=== PATIENT | male | born 1985 | race African-American/Black ===

== ENCOUNTER 2019-01-03 14:16 | Emergency (ER) | payer MEDICARE, MEDICAID ==
[~2019-01-03] VITALS: Ht 180.3 cm; Wt 100.0 kg
[~2019-01-03 14:16] MED LIST: MAGOX PO; OLAN10TA3 PO; RISP3 PO
[2019-01-03 14:37] VITALS: BP 134/84
== END 2019-01-03 15:45 | disposition left against medical advice (07) ==
LOC: EMS 14:18
DX: R22.0 Localized swelling, mass and lump, head (principal); Z53.21 Procedure and treatment not carried out due to patient leaving prior to being seen by health care provider

== ENCOUNTER 2019-07-03 09:36 | Inpatient (IN) | payer MEDICARE, MEDICAID ==
[~2019-07-03] VITALS: Ht 180.3 cm; Wt 107.4 kg
[2019-07-03 14:37] VITALS: BP 162/70
[2019-07-03] MEDS ORDERED: HALOPERIDOL 5 MG TABLET PO PRN (14:45)
[2019-07-03] MEDS ORDERED: LORazepam 2 MG TABLET PO PRN (14:45)
[2019-07-03] MEDS ORDERED: INFLUENZA VIRUS VACCINE QVS 2019-20 (3YR+)/PF 60 MCG/0.5 ML SYRINGE IM ONE (15:00)
[2019-07-03] MEDS ORDERED: MAGNESIUM HYDROXIDE SUSPENSION 30 ML UDCUP PO PRN ×2 (16:00→23:30)
[2019-07-03] MEDS ORDERED: LOPERAMIDE HCL 2 MG CAPSULE PO PRN ×2 (16:00→23:30)
[2019-07-03] MEDS ORDERED: IBUPROFEN 600 MG TABLET PO PRN ×2 (16:00→23:30)
[2019-07-03] MEDS ORDERED: PETROLATUM,WHITE 28 GM JELLY TP PRN ×2 (16:00→23:30)
[2019-07-03] MEDS ORDERED: BACITRACIN 28.4 GM OINTMENT TP PRN ×2 (16:00→23:30)
[2019-07-03] MEDS ORDERED: DOCUSATE SODIUM 100 MG CAPSULE PO PRN ×2 (16:00→23:30)
[2019-07-03] MEDS ORDERED: ALBUTEROL SULFATE HFA 90 MCG/PUFF 8 GM INHALER IH PRN ×2 (16:00→23:30)
[2019-07-03] MEDS ORDERED: CloNIDine HCL 0.1 MG TABLET PO PRN ×2 (16:00→23:30)
[2019-07-03] MEDS ORDERED: BENZOCAINE/MENTHOL LOZENGE MM PRN ×2 (16:00→23:30)
[2019-07-03] MEDS ORDERED: ONDANSETRON HCL 4 MG TABLET PO PRN ×2 (16:00→23:30)
[2019-07-03] MEDS ORDERED: MAG HYDROX/AL HYDROX/SIMETH ES 30 ML SUSPENSION UDCUP PO PRN ×2 (16:00→23:30)
[2019-07-03] MEDS ORDERED: OMEPRAZOLE 20 MG CAPSULE PO PRN ×2 (16:00→23:30)
[2019-07-03] MEDS ORDERED: ACETAMINOPHEN 325 MG TABLET PO PRN ×2 (16:00→23:30)
[2019-07-04] MEDS: ZOLPIDEM TARTRATE 10 MG TABLET PO PRN (00:02)
[2019-07-04 00:13] VITALS: BP 118/70
[2019-07-04] MEDS: DIVALPROEX SODIUM 500 MG DR TABLET PO SCH ×2 (08:10→16:29)
[2019-07-04] MEDS: RisperiDONE 3 MG TABLET PO SCH ×2 (08:10→16:29)
[2019-07-04] MEDS: BENZTROPINE MESYLATE 1 MG TABLET PO SCH (08:10)
[2019-07-04 08:30] VITALS: BP 135/70
[2019-07-04 16:11] VITALS: BP 137/90
[2019-07-05 01:05] VITALS: BP 112/80
[2019-07-05] MEDS: ZOLPIDEM TARTRATE 10 MG TABLET PO PRN ×2 (01:17→20:44)
[2019-07-05] MEDS: RisperiDONE 3 MG TABLET PO SCH ×2 (08:21→16:21)
[2019-07-05] MEDS: BENZTROPINE MESYLATE 1 MG TABLET PO SCH (08:21)
[2019-07-05] MEDS: DIVALPROEX SODIUM 500 MG DR TABLET PO SCH ×2 (08:21→16:21)
[2019-07-05 08:38] VITALS: BP 124/75
[2019-07-05 09:27] LABS: BASOPHILS % (AUTO) 1.2 % (0.0-2.0); EOSINOPHILS % (AUTO) 3.7 % (1.0-6.0); HEMATOCRIT 43.8 % (41-53); HEMOGLOBIN 14.5 g/dL (13.5-17.5); LYMPHOCYTES # (AUTO) 1.9 K/uL (1.0-4.8); LYMPHOCYTES % (AUTO) 45.3 % (22.0-44.0); MEAN CORPUSCULAR HEMOGLOBIN 28.3 pg (26.0-34.0); MEAN CORPUSCULAR HGB CONC 33.2 G/dL (31.0-37.0); MEAN CORPUSCULAR VOLUME 85 fL (80-100); MONOCYTES # (AUTO) 0.3 K/uL (0.1-1.0); MONOCYTES % (AUTO) 7.4 % (2.0-9.0); NEUTROPHILS # (AUTO) 1.8 K/uL (1.8-7.7); NEUTROPHILS % (AUTO) 42.4 % (40.0-70.0); PLATELET COUNT (AUTO) 235 K/uL (150-450); RED BLOOD CELL COUNT(AUTO) 5.14 MIL/uL (4.50-5.90); RED CELL DISTRIBUTION WIDTH 12.7 % (11.5-14.5)
[2019-07-05 09:47] LABS: HEMOGLOBIN A1C 4.8 % (4.5-6.2)
[2019-07-05 10:41] LABS: ALANINE AMINOTRANSFERASE 28 U/L (12-78); ALBUMIN 3.8 g/dL (3.4-5.0); ALKALINE PHOSPHATASE 72 U/L (46-116); ANION GAP 12 mmol/L (8-16); ASPARTATE AMINOTRANSFERASE 24 U/L (15-37); BILIRUBIN,TOTAL 0.5 mg/dL (0.1-1.0); CALCIUM, TOTAL 8.6 mg/dL (8.8-10.5); CARBON DIOXIDE 25 mmol/L (22-29); CHLORIDE 104 mmol/L (98-107); CHOLESTEROL 163 mg/dL (131-200); CREATININE 0.76 mg/dL (0.60-1.30); FREE T4 (FREE THYROXINE) 1.34 ng/dL (0.76-1.46); GLOMERULAR FILTR. RATE CALC > 60 mL/min (>60); GLUCOSE,RANDOM 102 mg/dL (70-110); HDL CHOLESTEROL 55 mg/dL (40-60); LDL CHOL (CALC.) 92 mg/dL (0-130); POTASSIUM 4.1 mmol/L (3.5-5.1); SODIUM SERUM 141 mmol/L (136-145); TOTAL PROTEIN, SERUM 7.2 g/dL (6.4-8.2); TRIGLYCERIDES 82 mg/dL (15-150); UREA NITROGEN, BLOOD 13 mg/dL (7-18)
[2019-07-05 17:19] VITALS: BP 138/78
[2019-07-06 00:53] VITALS: BP 126/80
[2019-07-06 08:02] VITALS: BP 135/85
[2019-07-06] MEDS: BENZTROPINE MESYLATE 1 MG TABLET PO SCH (08:03)
[2019-07-06] MEDS: RisperiDONE 3 MG TABLET PO SCH ×2 (08:03→16:29)
[2019-07-06] MEDS: DIVALPROEX SODIUM 500 MG DR TABLET PO SCH ×2 (08:03→16:29)
[2019-07-06 16:14] VITALS: BP 130/82
[2019-07-07] MEDS: ZOLPIDEM TARTRATE 10 MG TABLET PO PRN (00:03)
[2019-07-07 00:04] VITALS: BP 121/68
[2019-07-07 08:02] VITALS: BP 137/87
[2019-07-07] MEDS: DIVALPROEX SODIUM 500 MG DR TABLET PO SCH ×2 (08:23→16:46)
[2019-07-07] MEDS: BENZTROPINE MESYLATE 1 MG TABLET PO SCH (08:23)
[2019-07-07] MEDS: RisperiDONE 3 MG TABLET PO SCH ×2 (08:23→16:46)
[2019-07-07] MEDS ORDERED: DIVA250T4 PO (15:12)
[2019-07-07] MEDS ORDERED: BENZ1TAB10 PO (15:13)
[2019-07-07] MEDS ORDERED: RISP3TAB44 PO (15:13)
[2019-07-07 16:05] VITALS: BP 132/78
== END 2019-07-07 17:30 | disposition home or self-care (01) | DRG 885 ==
LOC: B2X 14:50
PROVIDERS: ADMIT Psychiatry & Neurology Psychiatry; ATTEND Psychiatry & Neurology Psychiatry
DX: F20.0 Paranoid schizophrenia (principal); G47.00 Insomnia, unspecified; E55.9 Vitamin D deficiency, unspecified; I10 Essential (primary) hypertension; K59.00 Constipation, unspecified; F15.90 Other stimulant use, unspecified, uncomplicated; Z88.8 Allergy status to other drugs, medicaments and biological substances; Z91.14 Patient's other noncompliance with medication regimen
CPT/HCPCS: 83036; 84439; 84443; 87081

== ENCOUNTER 2022-01-03 14:47 | Emergency (ER) | payer MEDICARE, MEDICAID ==
[~2022-01-03] VITALS: Ht 180.3 cm; Wt 129.6 kg
[~2022-01-03 14:47] MED LIST changes: +BENZ2TAB76 PO; -MAGOX PO; -OLAN10TA3 PO; -RISP3 PO
[2022-01-03 15:05] VITALS: BP 133/94
== END 2022-01-03 18:19 | disposition home or self-care (01) ==
LOC: EMS 14:47
DX: S62.610A Displaced fracture of proximal phalanx of right index finger, initial encounter for closed fracture (principal); F20.9 Schizophrenia, unspecified; Z91.014 Allergy to mammalian meats; W21.19XA Struck by other bat, racquet or club, initial encounter; Y93.89 Activity, other specified; Y92.89 Other specified places as the place of occurrence of the external cause; Y99.8 Other external cause status
CPT/HCPCS: 99283

== ENCOUNTER 2023-04-17 07:26 | Emergency (ER) | payer MEDICARE, MEDICAID ==
[~2023-04-17] VITALS: Ht 175.3 cm; Wt 109.1 kg
[~2023-04-17 07:26] MED LIST changes: +BENZ2TAB71 PO; -BENZ2TAB76 PO
[2023-04-17 07:50] VITALS: TEMP 98.3
[2023-04-17 08:07] LABS: BASOPHILS % (AUTO) 1.1 % (0.0-2.0); EOSINOPHILS % (AUTO) 1.7 % (1.0-6.0); HEMATOCRIT 43.5 % (41-53); HEMOGLOBIN 14.1 g/dL (13.5-17.5); LYMPHOCYTES % (AUTO) 30.6 % (22.0-44.0); MEAN CORPUSCULAR HEMOGLOBIN 27.9 pg (26.0-34.0); MEAN CORPUSCULAR HGB CONC 32.3 G/dL (31.0-37.0); MEAN CORPUSCULAR VOLUME 86 fL (80-100); MONOCYTES # (AUTO) 0.7 K/uL (0.1-1.0); MONOCYTES % (AUTO) 10.2 % (2.0-9.0); NEUTROPHILS # (AUTO) 3.7 K/uL (1.8-7.7); NEUTROPHILS % (AUTO) 56.4 % (40.0-70.0); PLATELET COUNT (AUTO) 303 K/uL (150-450); RED BLOOD CELL COUNT(AUTO) 5.04 MIL/uL (4.50-5.90); RED CELL DISTRIBUTION WIDTH 14.3 % (11.5-14.5)
[2023-04-17 08:20] LABS: ANION GAP 5 mmol/L (8-16); CALCIUM, TOTAL 8.7 mg/dL (8.8-10.5); CARBON DIOXIDE 30 mmol/L (22-29); CHLORIDE 106 mmol/L (98-107); GLOMERULAR FILTR. RATE CALC > 60 mL/min (>60); GLUCOSE,RANDOM 93 mg/dL (70-110); SODIUM SERUM 141 mmol/L (136-145)
[2023-04-17 08:26] LABS: ALANINE AMINOTRANSFERASE 16 U/L (12-78); ALBUMIN 3.7 g/dL (3.4-5.0); ALKALINE PHOSPHATASE 84 U/L (46-116); ASPARTATE AMINOTRANSFERASE 23 U/L (15-37); BILIRUBIN,TOTAL 0.5 mg/dL (0.1-1.0); TOTAL PROTEIN, SERUM 6.9 g/dL (6.4-8.2)
[2023-04-17] MEDS ORDERED: HALOPERIDOL 5 MG TABLET PO ONE (09:30)
[2023-04-17] MEDS ORDERED: BENZTROPINE MESYLATE 2 MG TABLET PO ONE (09:30)
[2023-04-17] MEDS ORDERED: CEPH-558 PO (09:52)
[2023-04-17] MEDS ORDERED: BENZ2TAB71 PO (09:52)
[2023-04-17] MEDS ORDERED: HALO5TAB23 PO (09:52)
[2023-04-17 09:53] VITALS: BP 153/74; PULSE 71; RESP 18
[2023-04-18] MEDS ORDERED: RISP3TAB63 PO (17:49)
== END 2023-04-17 10:00 | disposition home or self-care (01) ==
LOC: EMS 07:26
DX: F25.9 Schizoaffective disorder, unspecified (principal); L73.9 Follicular disorder, unspecified; Z91.018 Allergy to other foods
CPT/HCPCS: 99283; 80053; 85025; G0480

== ENCOUNTER 2023-04-18 13:36 | Emergency (ER) | payer MEDICARE, MEDICAID ==
[~2023-04-18] VITALS: Ht 180.3 cm; Wt 109.1 kg
[~2023-04-18 13:36] MED LIST changes: +CEPH-558 PO; +HALO5TAB23 PO
[2023-04-18 15:22] VITALS: TEMP 98.6
[2023-04-18] MEDS ORDERED: RisperiDONE 1 MG TABLET PO ONE (15:45)
[2023-04-18] MEDS ORDERED: RISP3TAB63 PO (17:49)
[2023-04-18 17:50] VITALS: BP 139/60; PULSE 60; RESP 16
== END 2023-04-18 18:36 | disposition home or self-care (01) ==
LOC: EMS 13:39
DX: F20.9 Schizophrenia, unspecified (principal); Z91.018 Allergy to other foods
CPT/HCPCS: 99284; Z7502; Z7610

== ENCOUNTER 2023-05-11 08:13 | Emergency (ER) | payer MEDICARE, MEDICAID ==
[~2023-05-11] VITALS: Ht 177.8 cm; Wt 84.1 kg
[~2023-05-11 08:13] MED LIST changes: +RISP3TAB63 PO
[2023-05-11 08:21] VITALS: TEMP 98.2
[2023-05-11] MEDS ORDERED: RisperiDONE 1 MG TABLET PO ONE (09:00)
[2023-05-11] MEDS ORDERED: RISP3TAB63 PO (11:36)
[2023-05-11 11:45] VITALS: BP 140/85; PULSE 75; RESP 12
== END 2023-05-11 11:57 | disposition home or self-care (01) ==
LOC: EMS 08:32
DX: F20.9 Schizophrenia, unspecified (principal); Z91.018 Allergy to other foods
CPT/HCPCS: 99283

== ENCOUNTER 2023-05-18 01:00 | Emergency (ER) | payer MEDICARE, MEDICAID ==
[~2023-05-18] VITALS: Ht 180.3 cm; Wt 90.0 kg
[2023-05-18 02:04] VITALS: TEMP 98.7
[2023-05-18 02:40] LABS: BASOPHILS % (AUTO) 0.8 % (0.0-2.0); EOSINOPHILS % (AUTO) 2.6 % (1.0-6.0); HEMATOCRIT 40.3 % (41-53); HEMOGLOBIN 13.4 g/dL (13.5-17.5); LYMPHOCYTES % (AUTO) 36.5 % (22.0-44.0); MEAN CORPUSCULAR HEMOGLOBIN 29.2 pg (26.0-34.0); MEAN CORPUSCULAR HGB CONC 33.4 G/dL (31.0-37.0); MEAN CORPUSCULAR VOLUME 88 fL (80-100); MONOCYTES # (AUTO) 0.5 K/uL (0.1-1.0); MONOCYTES % (AUTO) 8.3 % (2.0-9.0); NEUTROPHILS # (AUTO) 2.8 K/uL (1.8-7.7); NEUTROPHILS % (AUTO) 51.8 % (40.0-70.0); PLATELET COUNT (AUTO) 326 K/uL (150-450); RED CELL DISTRIBUTION WIDTH 14.4 % (11.5-14.5); WHITE BLOOD COUNT (AUTO) 5.4 K/uL (4.5-11.0)
[2023-05-18] MEDS ORDERED: OLANZapine 5 MG TABLET PO ONE (02:45)
[2023-05-18 02:50] LABS: ANION GAP 9 mmol/L (8-16); CALCIUM, TOTAL 8.3 mg/dL (8.8-10.5); CARBON DIOXIDE 25 mmol/L (22-29); CHLORIDE 104 mmol/L (98-107); CREATININE 0.73 mg/dL (0.60-1.30); GLOMERULAR FILTR. RATE CALC > 60 mL/min (>60); GLUCOSE,RANDOM 158 mg/dL (70-110); POTASSIUM 3.5 mmol/L (3.5-5.1); SODIUM SERUM 138 mmol/L (136-145); UREA NITROGEN, BLOOD 15 mg/dL (7-18)
[2023-05-18 02:53] LABS: ALCOHOL, BLOOD (SERUM) < 3 mg/dL (0-10)
[2023-05-18 02:59] LABS: ALANINE AMINOTRANSFERASE 29 U/L (12-78); ALBUMIN 3.4 g/dL (3.4-5.0); ALKALINE PHOSPHATASE 88 U/L (46-116); ASPARTATE AMINOTRANSFERASE 43 U/L (15-37); BILIRUBIN,TOTAL 0.5 mg/dL (0.1-1.0); TOTAL PROTEIN, SERUM 6.4 g/dL (6.4-8.2)
[2023-05-18 03:52] VITALS: BP 166/92; PULSE 60; RESP 15
[2023-05-18] MEDS ORDERED: HYDROCHLOROTHIAZIDE 25 MG TABLET PO ONE (04:00)
[2023-05-19] MEDS ORDERED: MELA5TAB40 PO (16:48)
== END 2023-05-18 06:43 | disposition home or self-care (01) ==
LOC: EMS 01:02
DX: F25.9 Schizoaffective disorder, unspecified (principal); I10 Essential (primary) hypertension; F17.210 Nicotine dependence, cigarettes, uncomplicated; Z91.018 Allergy to other foods
CPT/HCPCS: 99284; 80053; 85025; 36415; G0480

== ENCOUNTER 2023-05-19 14:29 | Emergency (ER) | payer MEDICARE, MEDICAID ==
[~2023-05-19] VITALS: Ht 175.3 cm; Wt 90.0 kg
[2023-05-19 14:31] VITALS: BP 133/84; PULSE 94; RESP 18; TEMP 98.2
[2023-05-19] MEDS ORDERED: MELA5TAB40 PO (16:48)
== END 2023-05-19 17:20 | disposition home or self-care (01) ==
LOC: EMS 14:29
DX: L85.3 Xerosis cutis (principal); I10 Essential (primary) hypertension; F20.9 Schizophrenia, unspecified; Z87.891 Personal history of nicotine dependence
CPT/HCPCS: 99282; Z7502

== ENCOUNTER 2023-07-08 21:07 | Emergency (ER) | payer MEDICARE, MEDICAID ==
[~2023-07-08] VITALS: Ht 175.3 cm; Wt 90.0 kg
[~2023-07-08 21:07] MED LIST changes: +MELA5TAB40 PO
[2023-07-08 21:11] VITALS: TEMP 97.9
[2023-07-08 22:36] VITALS: BP 134/71; PULSE 71; RESP 17
== END 2023-07-08 22:40 | disposition home or self-care (01) ==
LOC: EMS 21:08
DX: L85.3 Xerosis cutis (principal); I10 Essential (primary) hypertension; F20.9 Schizophrenia, unspecified; F17.210 Nicotine dependence, cigarettes, uncomplicated; Z91.018 Allergy to other foods
CPT/HCPCS: 99282; Z7502

== ENCOUNTER 2023-07-20 01:57 | Emergency (ER) | payer MEDICARE, MEDICAID ==
[~2023-07-20] VITALS: Ht 177.8 cm; Wt 92.0 kg
[2023-07-20 02:03] VITALS: BP 136/76; PULSE 76; RESP 18; TEMP 98.6
[2023-07-20] MEDS: DIPHENOXYLATE/ATROP 2.5-0.025 MG TABLET PO ONE (03:30)
== END 2023-07-20 04:00 | disposition home or self-care (01) ==
LOC: EMS 01:57
DX: R19.7 Diarrhea, unspecified (principal); I10 Essential (primary) hypertension; F20.9 Schizophrenia, unspecified; F17.210 Nicotine dependence, cigarettes, uncomplicated
CPT/HCPCS: 99283

== ENCOUNTER 2023-10-09 14:03 | Emergency (ER) | payer MEDICAID, MEDICARE ==
[~2023-10-09] VITALS: Ht 180.3 cm; Wt 90.9 kg
[2023-10-09 14:29] VITALS: TEMP 97.9
[2023-10-09] MEDS ORDERED: CEPH-558 PO (16:41)
[2023-10-09] MEDS ORDERED: RISP3TAB63 PO (16:41)
[2023-10-09 17:05] VITALS: BP 131/78; PULSE 78; RESP 16
== END 2023-10-09 17:37 | disposition home or self-care (01) ==
LOC: EMS 17:11
DX: F25.9 Schizoaffective disorder, unspecified (principal); L73.9 Follicular disorder, unspecified; I10 Essential (primary) hypertension; F17.210 Nicotine dependence, cigarettes, uncomplicated; Z91.018 Allergy to other foods; Z76.0 Encounter for issue of repeat prescription
CPT/HCPCS: 99281; Z7502